=== PATIENT | female | born 1995 | race Caucasian/White ===

== ENCOUNTER → 2021-09-30 | Outpatient (CLI) | LOC: LABNPT 13:30 | PROVIDERS: ATTEND Obstetrics & Gynecology | DX: N89.8 Other specified noninflammatory disorders of vagina (principal) | CPT/HCPCS: 87088; 87491; 87591 ==

== ENCOUNTER 2022-03-11 14:55 | Observation (INO) | payer OTHER ==
[~2022-03-11] VITALS: Ht 160 cm; Wt 68.4 kg
[2022-03-11 15:11] VITALS: BP 128/89
[2022-03-11] MEDS ORDERED: PREN-37 PO (15:14)
[2022-03-11 15:18] LABS: BILIRUBIN,URINE NEGATIVE (NEGATIVE); CLARITY,URINE CLEAR; COLOR,URINE YELLOW; GLUCOSE, URINE (UA) NEGATIVE (NEGATIVE); KETONES,URINE NEGATIVE (NEGATIVE); LEUKOCYTE ESTERASE ,URINE 3+ (NEGATIVE); NITRITE,URINE NEGATIVE (NEGATIVE); PH,URINE 6.5 (5-9); PROTEIN,URINE NEGATIVE (NEGATIVE)
[2022-03-11 15:37] LABS: BACTERIA,URINE NEGATIVE /HPF
[2022-03-11 17:26] LABS: BASOPHILS % (AUTO) 0 % (0-10); EOSINOPHILS # (AUTO) 0.1 10^3/uL (0.0-0.3); EOSINOPHILS % (AUTO) 1 % (0-10); HEMATOCRIT 39 % (35-52); HEMOGLOBIN 13.1 g/dL (11.5-16.0); LYMPHOCYTES # (AUTO) 1.5 10^3/uL (1.0-4.0); LYMPHOCYTES % (AUTO) 13 % (12-44); MEAN CORPUSCULAR HEMOGLOBIN 30 pg (25-34); MEAN CORPUSCULAR HGB CONC 33 g/dL (32-36); MEAN CORPUSCULAR VOLUME 89 fL (80-99); MEAN PLATELET VOLUME 11.3 fL (9.0-12.2); MONOCYTES # (AUTO) 0.7 10^3/uL (0.0-1.0); MONOCYTES % (AUTO) 6 % (0-12); NEUTROPHILS # (AUTO) 9.7 10^3/uL (1.8-7.8); NEUTROPHILS % (AUTO) 80 % (42-75); PLATELET COUNT 229 10^3/uL (130-400); WHITE BLOOD COUNT 12.2 10^3/uL (4.3-11.0)
[2022-03-11] MEDS: D5 LR IV SOLUTION 1,000 ML IV SCH (17:52)
[2022-03-11 19:39] VITALS: BP 116/68
[2022-03-11 21:45] VITALS: BP 127/77
[2022-03-11 23:45] VITALS: BP 116/68
[2022-03-12 01:45] VITALS: BP 110/68
[2022-03-12 03:45] VITALS: BP 110/62
[2022-03-12 05:45] VITALS: BP 128/80
[2022-03-12] MEDS: D5 LR IV SOLUTION 1,000 ML IV SCH (07:08)
[2022-03-12 07:40] VITALS: BP 114/80
--- NOTE | 2022-03-12 10:19 | Physician Query-Final Dx ---
,03/12/22 1019: Clinic Account Progress/Dx Physician Query: Please give diagnosis Please include # weeks gestation Date of Service Mar 11, 2022 at 14:55 JASON STEPHENS MD 03/12/22 1149: Clinic Account Progress/Dx DIAGNOSIS: Diagnosis 36-6/7 weeks gestation with labor YEISON,JunMar 12, 2022 10:19 JASON STEPHENS MD Mar 12, 2022 11:49
--- NOTE | 2022-03-12 11:41 | History & Physical ---
History and Physical Date Seen by Provider: Mar 11, 2022 Time Seen by Provider: 17:00 This patient is a 27-year-old 1 female who presents with complaint of back pain pressure vaginal discharge with bleeding. She is 36-6/7 weeks gestation. Her has been uncomplicated to date. She had called the office with the above complaint she was directed to Labor and delivery for evaluation.On initial evaluation her cervix was 3 cm dilated 60% effaced Relatively low station with a vertex presentation. She was hilton Off and on.Patient's GBS culture was negative after 35 weeks gestation As patient was late decision was made for observation with hydration through the night with reevaluation the following morning. Allergies are none Medications are vitamins Medical social and surgical histories are per the antepartum record HEENT exam is normal Neck is supple no lymphadenopathy no thyromegaly Abdomen is gravid soft nontender nondistended Extremities show no clubbing or cyanosis. There is no Homans' sign. Pelvic exam per the admitting nurses as noted above Assessment and plan 36-6/7 weeks gestation with an uncomplicated possibly in labor. Plan is for observation for determination of treatment management. If she is in labor we will allow her to proceed in labor and delivery. If she make cervical change through the night we will consider augmentation in the morning for prolonged latent labor. 36-6/7 weeks gestation with labor Allergies and Home Medications Allergies Coded Allergies: No Known Drug Allergies (Unverified , 03/11/22) Patient Home Medication List Home Medication List Reviewed: Yes Vit/Iron Fumarate/FA ( Tablet) 27 Mg Iron-800 Mcg Tablet, 1 E ACH PO DAILY, (Reported) Entered as Reported by: WILY MATUTE on 03/11/22 1514 Last Action: New Order JASON STEPHENS MD Mar 12, 2022 11:41
--- NOTE | 2022-03-12 11:48 | Progress Note ---
Standard Progress Note Progress Notes/Assess & Plan Date Seen by a Provider: Mar 12, 2022 Time Seen by a Provider: 08:15 Progress/Assessment & Plan Patient reports persistent continued back pain and pressure. She reports a vaginal discharge and bleeding/spotting has improved. She denies nausea or vomiting. Patient feels frequent movement. She does not report specifically feeling contractions. She does report that her abdomen sometimes tightens up. monitor shows contractions off and on with episodes of contractions every 2 minutes and episodes with contractions every 10 to 16 minutes Laboratory Tests Test 03/11/22 15:05 03/11/22 17:10 Range/Units Urine Color YELLOW Urine Clarity CLEAR Urine pH 6.5 5-9 Urine Specific [place] 1.015 L 1.016-1.022 Urine Protein NEGATIVE NEGATIVE Urine Glucose (UA) NEGATIVE NEGATIVE Urine Ketones NEGATIVE NEGATIVE Urine Nitrite NEGATIVE NEGATIVE Urine Bilirubin NEGATIVE NEGATIVE Urine Urobilinogen 0.2 < = 1.0 MG/DL Urine Leukocyte Esterase 3+ H NEGATIVE Urine RBC (Auto) NEGATIVE NEGATIVE Urine RBC NONE /HPF Urine WBC 10-25 H /HPF Urine Squamous Epithelial Cells 5-10 /HPF Urine Crystals NONE /LPF Urine Bacteria NEGATIVE /HPF Urine Casts NONE /LPF Urine Mucus NEGATIVE /LPF Urine Culture Indicated YES White Blood Count 12.2 H 4.3-11.0 10^3/uL Red Blood Count 4.43 3.80-5.11 10^6/uL Hemoglobin 13.1 11.5-16.0 g/dL Hematocrit 39 35-52 % Mean Corpuscular Volume 89 80-99 fL Mean Corpuscular Hemoglobin 30 25-34 pg Mean Corpuscular Hemoglobin Concent 33 32-36 g/dL Red Cell Distribution Width 14.1 10.0-14.5 % Platelet Count 229 130-400 10^3/uL Mean Platelet Volume 11.3 9.0-12.2 fL Immature Granulocyte % (Auto) 1 % Neutrophils (%) (Auto) 80 H 42-75 % Lymphocytes (%) (Auto) 13 12-44 % Monocytes (%) (Auto) 6 0-12 % Eosinophils (%) (Auto) 1 0-10 % Basophils (%) (Auto) 0 0-10 % Neutrophils # (Auto) 9.7 H 1.8-7.8 10^3/uL Lymphocytes # (Auto) 1.5 1.0-4.0 10^3/uL Monocytes # (Auto) 0.7 0.0-1.0 10^3/uL Eosinophils # (Auto) 0.1 0.0-0.3 10^3/uL Basophils # (Auto) 0.0 0.0-0.1 10^3/uL Immature Granulocyte # (Auto) 0.1 0.0-0.1 10^3/uL Lab work is as noted Urine culture is pending The abdomen is gravid soft and nontender Extremities show no clubbing or cyanosis. Homans' sign. Pelvic exam shows a cervix 4 cm dilated 80% effaced -1 station with palpable Vertex presentation and a slightly bulging membrane Assessment and plan Patient was admitted at 36-6/7 weeks gestation now she is 37 weeks gestation. Making her early term. . Considering this is her first baby she is 4 cm dilated her white blood cell count was only mildly elevated her GBS culture was negative I favored amniotomy with observation for progression in labor with plan to augment with Pitocin if needed to allow progress in labor and promote delivery. Patient had reservations about delivering at this point and we discussed continued observation for progression to active labor. Patient favored that option. Plan then was for observation for another hour or 2 if she does not demonstrate cervical change then if she prefers she can be discharged home with follow-up in clinic. She was given strict return to clinic precautions for signs symptoms indications of labor. She understands that the risk for amnionitis and/or endomyometritis is elevated in a nulliparous patient with progressive cervical dilation at this point. She was given precautions for signs symptoms or indications of uterine infection. Including elevated temperature pain or foul discharge. Patient was cautioned to return to clinic or to labor and delivery promptly for any of those signs Final Diagnosis 37 weeks with labor and apparent prolonged latent labor JASON STEPHENS MD Mar 12, 2022 11:48
== END 2022-03-12 10:09 | disposition home or self-care (01) ==
LOC: WSo 14:55 → LDRP 14:55 → WS 16:28 → LDRP 16:28 → UNDOADMOB 16:49 → LDRP 16:49 → WSo 17:21 → UNDODISOB 03-12 10:26 → EDSTATUS 03-12 13:37
PROVIDERS: ADMIT Obstetrics & Gynecology; ATTEND Obstetrics & Gynecology
DX: O60.03 Preterm labor without delivery, third trimester (principal); Z3A.36 36 weeks gestation of pregnancy
CPT/HCPCS: 36415; 81000; 85025; 86850; 86900; 86901; 87088; 96360; 96361; G0378

== ENCOUNTER → 2022-03-29 | Outpatient (CLI) | payer OTHER ==
[~2022-03-29] MED LIST: DOCU-143 PO; IBUP-1780 PO; OXYC-199 PO; OXYC1TAB12 PO; PREN-37 PO
[2022-03-29 14:28] LABS: URINE CREATININE FOR RATIO 46 MG/DL (30-125)
[2022-03-29 14:29] LABS: URINE PROTEIN FOR RATIO ONLY < 6 MG/DL (6-12)
== END ==
LOC: LABNPT 14:03
PROVIDERS: ATTEND Obstetrics & Gynecology
DX: O13.9 Gestational [pregnancy-induced] hypertension without significant proteinuria, unspecified trimester (principal); Z3A.00 Weeks of gestation of pregnancy not specified
CPT/HCPCS: 82570; 84156

== ENCOUNTER 2022-03-30 16:38 | Inpatient (IN) | payer OTHER ==
[~2022-03-30] VITALS: Ht 160 cm; Wt 68.5 kg
[~2022-03-30 16:38] MED LIST changes: -DOCU-143 PO; -IBUP-1780 PO; -OXYC-199 PO; -OXYC1TAB12 PO
[2022-03-30 16:56] VITALS: BP 126/84
[2022-03-30] MEDS ORDERED: LIDOCAINE/EPI 2% 1:200,00 (XYLOCAINE) 10 ML VIAL INJ PRN (17:30)
[2022-03-30] MEDS ORDERED: D5 LR IV SOLUTION 1,000 ML IV ONE (17:38)
[2022-03-30] MEDS: D5 LR IV SOLUTION 1,000 ML IV SCH ×2 (18:01→22:33)
[2022-03-30 18:02] VITALS: BP 122/70
[2022-03-30 18:20] LABS: BASOPHILS % (AUTO) 0 % (0-10); EOSINOPHILS # (AUTO) 0.1 10^3/uL (0.0-0.3); EOSINOPHILS % (AUTO) 1 % (0-10); HEMATOCRIT 42 % (35-52); HEMOGLOBIN 13.8 g/dL (11.5-16.0); LYMPHOCYTES # (AUTO) 1.5 10^3/uL (1.0-4.0); LYMPHOCYTES % (AUTO) 15 % (12-44); MEAN CORPUSCULAR HEMOGLOBIN 30 pg (25-34); MEAN CORPUSCULAR HGB CONC 33 g/dL (32-36); MEAN CORPUSCULAR VOLUME 89 fL (80-99); MEAN PLATELET VOLUME 11.5 fL (9.0-12.2); MONOCYTES # (AUTO) 0.7 10^3/uL (0.0-1.0); MONOCYTES % (AUTO) 6 % (0-12); NEUTROPHILS # (AUTO) 7.8 10^3/uL (1.8-7.8); NEUTROPHILS % (AUTO) 77 % (42-75); PLATELET COUNT 236 10^3/uL (130-400); WHITE BLOOD COUNT 10.1 10^3/uL (4.3-11.0)
[2022-03-30 18:36] VITALS: BP 121/82
[2022-03-30 19:02] VITALS: BP 126/84
[2022-03-30 19:17] VITALS: BP 126/84
[2022-03-30 20:27] LABS: BILIRUBIN,URINE NEGATIVE (NEGATIVE); CLARITY,URINE TURBID; COLOR,URINE YELLOW; GLUCOSE, URINE (UA) NEGATIVE (NEGATIVE); KETONES,URINE NEGATIVE (NEGATIVE); LEUKOCYTE ESTERASE ,URINE TRACE (NEGATIVE); NITRITE,URINE NEGATIVE (NEGATIVE); PROTEIN,URINE TRACE (NEGATIVE)
[2022-03-30 20:35] LABS: BACTERIA,URINE LARGE /HPF
[2022-03-30 20:36] LABS: YEAST,URINE FEW /HPF
[2022-03-30 21:15] VITALS: BP 120/76
[2022-03-31] VITALS (54 sets, daily range): BP systolic 97–139; BP diastolic 51–89
[2022-03-31] MEDS: D5 LR IV SOLUTION 1,000 ML IV SCH ×2 (05:03→10:00)
--- NOTE | 2022-03-31 07:31 | History & Physical ---
History and Physical Date Seen by Provider: Mar 30, 2022 Time Seen by Provider: 22:30 This patient is a 27-year-old 1 female currently at 39+ weeks gestation. She was admitted with complaint of spontaneous rupture membranes. She reports that gush of clear fluid with continuous clear fluid thereafter. She was having occasional contractions. Her has been uncomplicated. She has been widely dilated to 5 or 6 cm for about 2-1/2 weeks. Her GBS culture was negative after 35 weeks gestation. Patient denied bleeding. She did report frequent movement. Allergies are none Medications are vitamins Medical social and surgical histories are per the antepartum record HEENT exam is normal Neck is supple no lymphadenopathy no thyromegaly Abdomen is gravid soft nontender nondistended Extremities show no clubbing or cyanosis. There was no Homans' sign. Pelvic exam per the admitting nurse showed a cervix 5 to 6 cm dilated 70 - 80% effaced -1-2 station with gross rupture membranes. Assessment and plan 39+ weeks gestation with spontaneous rupture membranes. Plan on admission was expectant management with anticipation for vaginal delivery 39 weeks gestation with spontaneous rupture membranes Allergies and Home Medications Allergies Coded Allergies: No Known Drug Allergies (Unverified , 03/11/22) Patient Home Medication List Home Medication List Reviewed: Yes Vit/Iron Fumarate/FA ( Tablet) 27 Mg Iron-800 Mcg Tablet, 1 EACH PO DAILY, (Reported) Entered as Reported by: WILY MATUTE on 03/11/22 1514 Last Action: Reviewed JASON STEPHENS MD Mar 31, 2022 07:31
[2022-03-31] MEDS ORDERED: fentaNYL 2 mcg/ml BUPIVA 0.125 100 ML ONE (07:39)
[2022-03-31] MEDS ORDERED: LACTATED RINGERS 1,000 ML IV ONE (07:40)
[2022-03-31] MEDS ORDERED: OXYC-199 PO (07:44)
[2022-03-31] MEDS ORDERED: IBUP-1780 PO (07:44)
[2022-03-31] MEDS ORDERED: DOCU-143 PO (07:44)
--- NOTE | 2022-03-31 07:45 | Discharge Inst-Surgical ---
Discharge Inst-Surgical Depart Medication/Instructions New, Converted or Re-Newed RX: Transmitted to Pharmacy Consults/Follow Up Patient Instructions: As directed Orders & Referrals Follow Up Appt: Call to make follow up appt. for patient in 4 weeks. Activity Per routine post vaginal delivery instructions. Prescriptions for Percocet Motrin and Colace have been transmitted electronically to patient's pharmacy Diet as tolerated Patient may shower or tub bathe as desired. Activity Activity as Tolerated: No Diet Discharge Diet: No Restrictions JASON STEPHENS MD Mar 31, 2022 07:45
[2022-03-31] MEDS ORDERED: fentaNYL INJ 100 MCG/2 ML AMP ONE ×2 (07:52→15:14)
[2022-03-31] MEDS ORDERED: OXYTOCIN PRE-MIX DRIP 500 ML IV SCH (08:00)
[2022-03-31] MEDS ORDERED: LACTATED RINGERS 1,000 ML IV SCH (08:30)
[2022-03-31] MEDS ORDERED: fentaNYL 2 mcg/ml BUPIVA 0.125 100 ML EPI SCH (08:30)
[2022-03-31] MEDS ORDERED: NALOXONE 0.4 MG/ML 1 ML (NARCAN) VIAL IV PRN ×2 (08:30)
[2022-03-31] MEDS ORDERED: ONDANSETRON 4 MG/2 ML (SDV) Z0FRAN IV PRN (08:30)
[2022-03-31] MEDS ORDERED: diphenhydrAMINE 50 MG/ML INJ (BENADRYL) IV PRN (08:30)
[2022-03-31] MEDS ORDERED: METOCLOPRAMIDE INJ 10 MG/2 ML (REGLAN) IV PRN (08:30)
[2022-03-31] MEDS ORDERED: ceFAZolin INJECTION 1,000 MG in NS (IVPB) 50 ML IV SCH (10:00)
[2022-03-31] MEDS ORDERED: TERBUTALINE INJ 1 MG/ML (BRETHINE) AMP SC ONE (15:10)
[2022-03-31] MEDS ORDERED: TERBUTALINE INJ 1 MG/ML (BRETHINE) AMP ONE (15:10)
[2022-03-31] MEDS ORDERED: metroNIDAZOLE 500MG/100ML IVPB 100 ML ONE (15:15)
[2022-03-31] MEDS ORDERED: CITRIC ACID/SOB CIT (BICITRA) 30 ML UDC ONE (15:15)
[2022-03-31] MEDS ORDERED: METOCLOPRAMIDE INJ 10 MG/2 ML (REGLAN) ONE (15:15)
[2022-03-31] MEDS ORDERED: NS (IVPB) 50 ML ONE (15:15)
[2022-03-31] MEDS ORDERED: FAMOTIDINE 20MG/2ML IV (PEPCID) ONE (15:16)
[2022-03-31] MEDS ORDERED: ceFAZolin INJECTION 2,000 MG ONE (15:17)
[2022-03-31] MEDS ORDERED: ONDANSETRON 4 MG/2 ML (SDV) Z0FRAN ONE (15:23)
[2022-03-31] MEDS ORDERED: metroNIDAZOLE 500MG/100ML IVPB 100 ML IV ONE (15:30)
[2022-03-31] MEDS ORDERED: ceFAZolin INJECTION 2,000 MG in NS (IVPB) 50 ML IV ONE (15:30)
[2022-03-31] MEDS ORDERED: MEPERIDINE (DEMEROL) INJ 50 MG/ML IM PRN (15:30)
[2022-03-31] MEDS ORDERED: PROMETHAZINE INJ 25 MG/ML (PHENERGAN) AMP IM PRN (15:30)
[2022-03-31] MEDS ORDERED: D5 LR IV SOLUTION 1,000 ML IV SCH (15:30)
[2022-03-31] MEDS ORDERED: TETANUS,DIPTH,PERTUSS P/F (BOOSTRIX) 0.5 ML VIAL IM ONE (15:30)
[2022-03-31] MEDS ORDERED: KETAMINE 50 MG/5 ML SYRINGE ONE (15:51)
[2022-03-31] MEDS ORDERED: MIDAZOLAM 2 MG/2 ML (VERSED) VIAL ONE (15:52)
[2022-03-31] MEDS ORDERED: OXYTOCIN PRE-MIX DRIP 500 ML IV ONE (16:04)
[2022-03-31] MEDS ORDERED: BUPIVACAINE 0.5% 30 ML (SENSORCAINE) VIAL ONE (16:04)
[2022-03-31] MEDS ORDERED: proPOfol 200 MG/20 ML (DIPRIVAN) VIAL IV ONE (16:04)
[2022-03-31] MEDS ORDERED: LIDOCAINE PF 2% 5 ML (XYLOCAINE) VIAL ONE (16:04)
[2022-03-31] MEDS ORDERED: OXYC1TAB12 PO (16:32)
--- NOTE | 2022-03-31 16:33 | Discharge Inst-Surgical ---
Discharge Inst-Surgical Consults/Follow Up Orders & Referrals Follow Up Appt: RTC 1 week for incision check. Call to make follow up appt. for patient in 4 weeks. Wound Care: Remove cal, apply benzoin and steri strips. Activity Per routine post instructions. Diet as tolerated Patient may shower or tub bathe as desired. Continue home meds JASON STEPHENS MD Mar 31, 2022 16:33
[2022-03-31] MEDS ORDERED: CITRIC ACID/SOB CIT (BICITRA) 30 ML UDC PO ONE (17:15)
[2022-03-31] MEDS ORDERED: oxyCODONE/APAP 5/325MG (PERCOCET 5) TABLET PO PRN (17:15)
[2022-03-31] MEDS ORDERED: LACTATED RINGERS 1,000 ML IV PRN (17:15)
[2022-03-31] MEDS ORDERED: METOCLOPRAMIDE INJ 10 MG/2 ML (REGLAN) IV ONE (17:15)
[2022-03-31] MEDS ORDERED: IBUPROFEN 800 MG (MOTRIN) TAB PO SCH (17:15)
[2022-03-31] MEDS ORDERED: FAMOTIDINE 20MG/2ML IV (PEPCID) IV ONE (17:15)
[2022-03-31] MEDS: KETOROLAC 30 MG/ML VIAL IV SCH (17:40)
[2022-03-31] MEDS: OXYTOCIN PRE-MIX DRIP 500 ML IV SCH (17:40)
[2022-03-31] MEDS: DOCUSATE SODIUM 100 MG (COLACE) CAP PO SCH (20:54)
[2022-03-31] MEDS: CATHETER FLUSH 10 ML SYR IV SCH (22:04)
[2022-04-01 00:20] VITALS: BP 114/55
[2022-04-01] MEDS: KETOROLAC 30 MG/ML VIAL IV SCH ×2 (00:22→06:28)
--- NOTE | 2022-04-01 03:03 | OPERATIVE REPORT ---
DATE OF SERVICE: 03/31/2022 PREOPERATIVE DIAGNOSES: Term in labor with failure to progress due to deep transverse arrest. POSTOPERATIVE DIAGNOSES: Term in labor with failure to progress due to deep transverse arrest. OPERATIVE PROCEDURE: Primary low transverse delivery of a viable male with Apgars of 5 and 9 at 1 and 5 minutes respectively, weight of 7 pounds 4 ounces. Cord blood gas of 7.15 and a time of 1553. OPERATIVE DESCRIPTION: With the patient in the supine position under satisfactory epidural analgesia, she was prepped and draped in the usual fashion for abdominal surgery. Boggs catheter was placed in the urinary bladder, left to dependent drainage. A Pfannenstiel incision was made through the skin with scalpel, the patient's abdomen was entered in the usual manner. Bladder retractor placed in position, clean scalpel was used to make a 4 cm hysterotomy incision transversely across the lower uterine segment that was extended by blunt dissection as well. Small amount of fluid was released on hysterotomy. The incision was extended bluntly. Morel forceps were applied to facilitate the delivery of the viable male infant from a deep transverse with right occiput transverse position. The infant was gradually elevated out of the pelvis where it had been locked in and failed to progress with vigorous pushing for quite some time by mom. The Morel forceps were applied and the infant delivered in the usual manner. The infant was bulb suctioned on delivery of the head and again on completion of delivery. The umbilical cord was doubly clamped and the infant was passed to the pediatric nurse in attendance for the delivery when the cord was cut. Cord bloods were obtained. The placenta delivered spontaneously Garcia. It was normal with a 3-vessel cord. The uterus was exteriorized and interior wiped clean with a wet laparotomy sponge. Uterine incision closed with running locked suture of 2-0 Vicryl. Hemostasis was satisfactory, but the uterus was quite atonic and to prevent significant postoperative bleeding, a modified B-Rodriguez suture was placed using 2-0 chromic sutures in the usual modified manner. This compressed the uterus nicely. The uterus was now returned to abdominal cavity. All blood clot and debris were removed from the abdominal cavity. With sponge and needle counts correct and hemostasis assured, the anterior parietal peritoneum was closed with running suture of 2-0 Vicryl. Rectus muscles were closed with that suture as well. The rectus fascia was closed with 2-0 Vicryl, subcutaneous tissue was closed with 2-0 Vicryl and the skin was stapled. Sponge and needle counts were correct on completion of the procedure. Blood loss was around 400 mL. The patient tolerated the procedure well and was transferred to the recovery room in stable condition. The had remained at bedside with the parents. Job ID: [id number] DocumentID: [id number] Dictated Date: 03/31/2022 16:38:12 Shake Sawyer Date: 04/01/2022 03:03:34 Dictated By: JASON STEPHENS MD
[2022-04-01 04:05] VITALS: BP 123/68
[2022-04-01] MEDS: CATHETER FLUSH 10 ML SYR IV SCH (05:16)
[2022-04-01] MEDS: IBUPROFEN 800 MG (MOTRIN) TAB PO SCH ×3 (06:48→19:22)
--- NOTE | 2022-04-01 08:03 | Progress Note ---
Standard Progress Note Progress Notes/Assess & Plan Date Seen by a Provider: Apr 01, 2022 Time Seen by a Provider: 08:02 Progress/Assessment & Plan This patient is without complaint. She is ambulating, voiding, tolerating oral intake and has good pain control. Vital Signs Date Time Temp Pulse Resp B/P (MAP) Pulse Ox O2 Delivery O2 Flow Rate FiO2 04/01/22 04:05 36.9 111 20 123/68 (86) 98 Room Air 04/01/22 00:20 37.4 121 18 114/55 (74) 99 Room Air 03/31/22 21:52 99 Room Air 03/31/22 20:46 37.0 129 20 109/59 (76) 97 Room Air 03/31/22 18:50 37.6 110 18 114/57 (76) 97 Room Air 03/31/22 17:10 Room Air 03/31/22 17:10 119 18 118/56 (76) 98 Room Air 03/31/22 17:10 38.2 18 118/56 (76) 98 Room Air 03/31/22 16:55 38.3 18 121/63 (82) 98 Room Air 03/31/22 16:55 Room Air 03/31/22 16:40 38.2 18 119/72 (88) 98 Room Air 03/31/22 16:40 Room Air 03/31/22 16:25 Room Air 03/31/22 16:25 37.9 18 123/65 (84) 99 Room Air 03/31/22 15:30 122 18 109/55 (73) Room Air 03/31/22 15:26 117 18 103/51 (68) Room Air 03/31/22 15:01 108 18 122/72 (89) Room Air 03/31/22 14:16 89 18 115/63 (80) Room Air 03/31/22 14:00 95 18 128/79 (95) Room Air 03/31/22 13:46 99 18 114/68 (83) Room Air 03/31/22 13:37 35.7 03/31/22 13:31 83 18 122/76 (91) Room Air 03/31/22 13:17 85 18 122/77 (92) Room Air 03/31/22 13:10 36.1 03/31/22 13:01 101 18 139/89 (106) Room Air 03/31/22 12:45 94 18 119/77 (91) Room Air 03/31/22 12:32 90 18 121/77 (92) Room Air 03/31/22 12:16 90 18 118/80 (93) Room Air 03/31/22 12:01 88 18 114/72 (86) Room Air 03/31/22 11:57 36.1 03/31/22 11:46 84 18 112/62 (79) Room Air 03/31/22 11:31 71 18 114/74 (87) Room Air 03/31/22 11:16 80 18 116/69 (85) Room Air 03/31/22 11:00 88 18 126/74 (91) Room Air 03/31/22 10:52 35.2 03/31/22 10:45 99 18 112/76 (88) Room Air 03/31/22 10:31 87 18 114/69 (84) Room Air 03/31/22 10:16 90 18 116/72 (87) Room Air 03/31/22 10:00 93 18 112/73 (86) Room Air 03/31/22 09:47 90 18 121/78 (92) Room Air 03/31/22 09:33 76 18 118/70 (86) Room Air 03/31/22 09:19 35.6 03/31/22 09:15 109 18 123/79 (94) Room Air 03/31/22 09:12 89 18 121/83 (96) Room Air 03/31/22 09:05 82 18 116/78 (91) Room Air 03/31/22 09:00 80 18 119/79 (92) Room Air 03/31/22 08:57 84 18 129/78 (95) Room Air 03/31/22 08:50 81 18 122/82 (95) Room Air 03/31/22 08:44 95 18 118/78 (91) Room Air 03/31/22 08:41 91 18 118/75 (89) Room Air 03/31/22 08:38 103 18 113/81 (92) Room Air 03/31/22 08:35 93 18 123/84 (97) Room Air 03/31/22 08:32 83 18 122/80 (94) Room Air 03/31/22 08:29 78 18 117/79 (92) Room Air 03/31/22 08:26 88 18 122/75 (91) Room Air 03/31/22 08:23 101 18 115/72 (86) Room Air 03/31/22 08:20 96 18 118/80 (93) Room Air 03/31/22 08:16 99 18 126/89 (101) Room Air 03/31/22 08:13 100 18 120/88 (99) Room Air 03/31/22 08:10 96 18 115/82 (93) Room Air 03/31/22 08:07 95 18 122/82 (95) Room Air 03/31/22 08:04 103 18 128/83 (98) Room Air I & O 04/01/22 07:00 Intake Total 1550 ml Output Total 1200 ml Balance 350 ml Vital signs are stable. Patient is afebrile. The abdomen is benign. The surgical incision is clean dry and intact. Fundus is firm below the umbilicus and nontender. Extremities show no clubbing cyanosis. There is no Homans' sign. Pelvic exam was deferred Assessment and plan Postoperative day #1 status post 39-week primary delivery for deep transverse arrest. Patient will have routine convalescent care JASON STEPHENS MD Apr 01, 2022 08:03
[2022-04-01 09:45] VITALS: BP 113/68
[2022-04-01] MEDS: DOCUSATE SODIUM 100 MG (COLACE) CAP PO SCH ×2 (09:47→21:21)
[2022-04-01 13:30] VITALS: BP 116/70
--- NOTE | 2022-04-01 13:38 | Anesthesia-Regional Post-Op ---
Regional Patient Condition Mental Status: Alert, Oriented x3 Circulation: Same as Pre-Op Headache: Absent Sensation: Full Recovery Motor Block: Absent Post Op Complications Complications None Follow Up Care/Instructions Patient Instructions None needed. Anesthesia/Patient Condition Patient is doing well, no complaints, stable vital signs, no apparent adverse anesthesia problems. No complications reported per nursing. VERÓNICA FIGUEREDO CRNA Apr 01, 2022 13:38
[2022-04-01] MEDS ORDERED: IBUPROFEN 800 MG (MOTRIN) TAB PO SCH (16:00)
[2022-04-01] MEDS: OXYTOCIN PRE-MIX DRIP 500 ML IV SCH (18:22)
[2022-04-01 19:22] VITALS: BP 114/65
[2022-04-02] MEDS: IBUPROFEN 800 MG (MOTRIN) TAB PO SCH ×2 (00:28→06:30)
[2022-04-02 00:29] VITALS: BP 129/82
[2022-04-02 06:32] VITALS: BP 116/74
--- NOTE | 2022-04-02 07:25 | Progress Note ---
Standard Progress Note Progress Notes/Assess & Plan Date Seen by a Provider: Apr 02, 2022 Time Seen by a Provider: 07:25 Progress/Assessment & Plan This patient is without complaint. She is ambulating, voiding, tolerating oral intake and has good pain control. Vital Signs Date Time Temp Pulse Resp B/P (MAP) Pulse Ox O2 Delivery O2 Flow Rate FiO2 04/01/22 04:05 36.9 111 20 123/68 (86) 98 Room Air 04/01/22 00:20 37.4 121 18 114/55 (74) 99 Room Air 03/31/22 21:52 99 Room Air 03/31/22 20:46 37.0 129 20 109/59 (76) 97 Room Air 03/31/22 18:50 37.6 110 18 114/57 (76) 97 Room Air 03/31/22 17:10 Room Air 03/31/22 17:10 119 18 118/56 (76) 98 Room Air 03/31/22 17:10 38.2 18 118/56 (76) 98 Room Air 03/31/22 16:55 38.3 18 121/63 (82) 98 Room Air 03/31/22 16:55 Room Air 03/31/22 16:40 38.2 18 119/72 (88) 98 Room Air 03/31/22 16:40 Room Air 03/31/22 16:25 Room Air 03/31/22 16:25 37.9 18 123/65 (84) 99 Room Air 03/31/22 15:30 122 18 109/55 (73) Room Air 03/31/22 15:26 117 18 103/51 (68) Room Air 03/31/22 15:01 108 18 122/72 (89) Room Air 03/31/22 14:16 89 18 115/63 (80) Room Air 03/31/22 14:00 95 18 128/79 (95) Room Air 03/31/22 13:46 99 18 114/68 (83) Room Air 03/31/22 13:37 35.7 03/31/22 13:31 83 18 122/76 (91) Room Air 03/31/22 13:17 85 18 122/77 (92) Room Air 03/31/22 13:10 36.1 03/31/22 13:01 101 18 139/89 (106) Room Air 03/31/22 12:45 94 18 119/77 (91) Room Air 03/31/22 12:32 90 18 121/77 (92) Room Air 03/31/22 12:16 90 18 118/80 (93) Room Air 03/31/22 12:01 88 18 114/72 (86) Room Air 03/31/22 11:57 36.1 03/31/22 11:46 84 18 112/62 (79) Room Air 03/31/22 11:31 71 18 114/74 (87) Room Air 03/31/22 11:16 80 18 116/69 (85) Room Air 03/31/22 11:00 88 18 126/74 (91) Room Air 03/31/22 10:52 35.2 03/31/22 10:45 99 18 112/76 (88) Room Air 03/31/22 10:31 87 18 114/69 (84) Room Air 03/31/22 10:16 90 18 116/72 (87) Room Air 03/31/22 10:00 93 18 112/73 (86) Room Air 03/31/22 09:47 90 18 121/78 (92) Room Air 03/31/22 09:33 76 18 118/70 (86) Room Air 03/31/22 09:19 35.6 03/31/22 09:15 109 18 123/79 (94) Room Air 03/31/22 09:12 89 18 121/83 (96) Room Air 03/31/22 09:05 82 18 116/78 (91) Room Air 03/31/22 09:00 80 18 119/79 (92) Room Air 03/31/22 08:57 84 18 129/78 (95) Room Air 03/31/22 08:50 81 18 122/82 (95) Room Air 03/31/22 08:44 95 18 118/78 (91) Room Air 03/31/22 08:41 91 18 118/75 (89) Room Air 03/31/22 08:38 103 18 113/81 (92) Room Air 03/31/22 08:35 93 18 123/84 (97) Room Air 03/31/22 08:32 83 18 122/80 (94) Room Air 03/31/22 08:29 78 18 117/79 (92) Room Air 03/31/22 08:26 88 18 122/75 (91) Room Air 03/31/22 08:23 101 18 115/72 (86) Room Air 03/31/22 08:20 96 18 118/80 (93) Room Air 03/31/22 08:16 99 18 126/89 (101) Room Air 03/31/22 08:13 100 18 120/88 (99) Room Air 03/31/22 08:10 96 18 115/82 (93) Room Air 03/31/22 08:07 95 18 122/82 (95) Room Air 03/31/22 08:04 103 18 128/83 (98) Room Air I & O 04/01/22 07:00 Intake Total 1550 ml Output Total 1200 ml Balance 350 ml Vital signs are stable. Patient is afebrile. The abdomen is benign. The surgical incision is clean dry and intact. Fundus is firm below the umbilicus and nontender. Extremities show no clubbing cyanosis. There is no Homans' sign. Pelvic exam was deferred Assessment and plan Postoperative day #1 status post 39-week primary delivery for deep transverse arrest. Patient will have routine convalescent care April 02, 2022 Patient is without complaint. She is ambulating, voiding, tolerating oral in take well and has good pain control. Patient is requesting discharge home. Vital Signs Date Time Temp Pulse Resp B/P (MAP) Pulse Ox O2 Delivery O2 Flow Rate FiO2 04/02/22 06:32 36.1 96 18 116/74 (88) 100 Room Air 04/02/22 00:29 36.6 92 18 129/82 (98) 98 Room Air 04/01/22 19:22 36.8 98 18 114/65 (81) 98 Room Air 04/01/22 13:30 36.7 92 16 116/70 (85) 99 Room Air 04/01/22 09:45 36.5 90 16 113/68 (83) 98 Room Air Vital signs are stable. Patient is afebrile. Fundus is firm below the umbilicus and nontender. The surgical incision is clean dry and intact. Extremities show no clubbing or cyanosis. There is no Homans' sign. Assessment and plan Postoperative day #2 status post primary delivery doing well. Plan is for discharge home with follow-up in clinic Final Diagnosis 39-week primary delivery JASON STEPHENS MD Apr 02, 2022 07:25
[2022-04-02] MEDS: DOCUSATE SODIUM 100 MG (COLACE) CAP PO SCH (08:40)
== END 2022-04-02 11:45 | disposition home or self-care (01) | DRG 788 ==
LOC: WSo 16:38 → LDRP 16:45 → WSo 16:45 → LDRP 17:15 → WS 03-31 17:15
PROVIDERS: ADMIT Obstetrics & Gynecology; ATTEND Obstetrics & Gynecology
PROC: 10D00Z1 Extraction of Products of Conception, Low, Open Approach (ICD-10-PCS; principal; 2022-03-31 15:35)
DX: O64.0XX0 Obstructed labor due to incomplete rotation of fetal head, not applicable or unspecified (principal); Z3A.39 39 weeks gestation of pregnancy; Z37.0 Single live birth
CPT/HCPCS: 36415; 81000; 85025; 86780; 86850; 86900; 86901; 87088; 94664